=== PATIENT | male | born 1990 | race Caucasian/White ===

== ENCOUNTER 2016-12-23 09:01 | Emergency (ER) | payer BC, OTHER ==
--- NOTE | ~2016-12-23 | CT4 ---
[facility] A Service of [facility] RADIOLOGY TEXT RESULTS PATIENT: ARLENE SUAREZ LOCATION: [facility] : [birth year] UNIT #: [id number] AGE: [address]: Carlos Coyle DO SEX: M ORDER DR: [id number] [facility] [address] [place], [place] [address] [id number] E MR#: [id number] Acc #: [id number] NAME: ARLENE SUAREZ : 1990 SEX: M STUDY DATE/TIME: 12/23/2016 11:19 UNIT: [facility] ROOM: STUDY DESCRIPTION: CT Abd and Pelv Wo Cont Attending Physician: Carlos Coyle D.O. Ordering Physician: Carlos Coyle D.O. Primary Care Physician: Primary Care Physician No MEDICAL IMAGING REPORT This report is preliminary unless electronic signature is present EXAM Abdomen and pelvis CT without HISTORY Black stool this morning. History of hemorrhoids. No history of cancer. No history of trauma. The CT exam was performed with one or more of the following radiation dose reduction techniques: automatic exposure control, adjustment of mA and/or kV according to patient size, and iterative reconstruction. COMMENT CT abdomen and pelvis performed without IV or oral contrast media using a urinary tract stone protocol. Lack of intravenous and oral contrast media limits evaluation for pathology other than urinary tract calculus disease. There is no abnormality at lung bases. CT Abdomen: The unenhanced liver, gallbladder, spleen, adrenal glands, and pancreas are unremarkable. There is no evidence for intrarenal calculus or hydronephrosis. There is no evidence for abdominal aortic aneurysm. CT of the pelvis shows unremarkable appearance to the urinary bladder. Appendix is radiographically normal. There is no bowel obstruction appreciated. There is no free intraperitoneal air. There is a small fat-containing periumbilical hernia. No drainable fluid collection is suspected on this noncontrast exam. IMPRESSION 1. Small fat-containing periumbilical hernia. 2. Radiographically normal appearance to the appendix. [facility] A Service of [facility] RADIOLOGY TEXT RESULTS PATIENT: ARLENE SUAREZ LOCATION: [facility] : [birth year] UNIT #: [id number] AGE: [address]: Carlos Coyle DO SEX: M ORDER DR: 3. No evidence for urinary tract calculus disease. Study is limited by lack of IV and oral contrast media for evaluation for pathology other than urinary tract calculus disease. Nothing to suggest bowel obstruction, free intraperitoneal air or drainable fluid collection on this noncontrast study. Dictated by... Yandy Grey M.D. THIS IS AN ELECTRONICALLY VERIFIED REPORT Yandy Grey M.D. at 12/25/2016 8:40 AM HIMANSHU/chino TD: 12/24/2016 08:33 JOB #: [id number] MEDICAL IMAGING REPORT Page 1 of 1 COPY
[2016-12-23 10:06] LABS: BASOPHIL% 0.4 % (0-2.5); EOSINOPHIL# 0.1 X10e3 (0-0.7); EOSINOPHIL% 1.9 % (0.0-7.0); HEMATOCRIT 47.6 % (38.0-50.0); HEMOGLOBIN 16.1 gm/dL (13.0-16.0); LYMPHOCYTE# 2.1 X10e3 (1.0-3.5); LYMPHOCYTE% 37.3 % (17.0-45.0); MEAN CELL VOLUME 94.6 FL (83-96); MEAN CORPUSCULAR HEMOGLOBIN 31.9 PG (28-34); MEAN CORPUSCULAR HGB CONC 33.7 g/dL (30-36); MEAN PLATELET VOLUME 8.4 FL (6.5-11.5); MONOCYTE# 0.5 X10e3 (0-1.0); MONOCYTE% 8.2 % (3.0-12.0); NEUTROPHIL# 2.9 X10e3 (1.5-7.1); NEUTROPHIL% 52.2 % (40-75); PLATELET COUNT 214 X10e3 (140-420); RED BLOOD COUNT 5.03 X10e (3.90-5.60); RED CELL DISTRIBUTION WIDTH 13.5 % (11.0-15.5); WHITE BLOOD COUNT 5.5 X10e3 (4.0-10.5)
[2016-12-23 10:07] LABS: DIFF IND NO
[2016-12-23 10:12] LABS: PARTIAL THROMBOPLASTIN TIME 30.8 SECONDS (23.5-31.3); PROTHROMBIN TIME (PATIENT) 10.9 SECONDS (10.0-11.7)
[2016-12-23 10:23] LABS: ALBUMIN SERUM 4.6 g/dL (3.5-5.0); BILIRUBIN, DIRECT 0.2 mg/dL (0.0-0.2); BILIRUBIN,INDIRECT 1.1 mg/dL (0.0-0.9); BILIRUBIN,TOTAL 1.3 mg/dL (0.2-2.0); BUN/CREATININE RATIO 16.66; CALCIUM SERUM 9.2 mg/dL (8.4-10.2); CREATININE SERUM 0.9 mg/dL (0.6-1.4); GLOM FILT RATE Estimated 118.3 mL/min (>60); POTASSIUM 3.9 mmol/L (3.5-5.1); PROTEIN TOTAL SERUM 7.2 g/dL (6.0-8.3)
[2016-12-23 12:28] LABS: URINE SOURCE CLEAN CATCH
[2016-12-23 12:39] LABS: URINE APPEARANCE CLEAR; URINE BLOOD NEG (NEG); URINE COLOR DK YELLOW; URINE GLUCOSE NEG (NEG); URINE KETONE TRACE (NEG); URINE LEUKOCYTE ESTERASE TRACE (NEG); URINE NITRATE NEG (NEG); URINE PH 7.5 (5-8); URINE PROTEIN TRACE (NEG); URINE SPECIFIC GRAVITY 1.029 (1.003-1.035)
[2016-12-23 12:42] LABS: URBCS1 AUWI 0-2 /[HPF] (0-2); URINE BACTERIA AUWI NEG (NEGATIVE); URINE SQUAMOUS EPITHELIAL CELL NONE SEEN /[HPF]
[2016-12-23 12:50] LABS: URINE BILIRUBIN NEG (NEG)
[2016-12-23 12:51] LABS: CULTURE INDICATED? NO
[2017-01-08] MEDS ORDERED: NO MEDICATIONS (14:52)
== END 2016-12-23 12:15 | disposition home or self-care (01) ==
LOC: CED 09:01
PROVIDERS: Emergency Medicine
DX: R19.5 Other fecal abnormalities (principal); R10.9 Unspecified abdominal pain; F17.200 Nicotine dependence, unspecified, uncomplicated
CPT/HCPCS: 36415; 74176; 80048; 80076; 81003; 83690; 85025; 85610; 85730; 96360; 99284